=== PATIENT | male | born 1960 | race Caucasian/White ===

== ENCOUNTER 2023-06-19 11:21 | Inpatient (IN) | payer OTHER ==
[2023-06-19 11:38] VITALS: BMI 29.5
[2023-06-19] MEDS ORDERED: guaiFENesin 600 MG TABLET.ER (FP) PO PRN (12:17)
[2023-06-19] MEDS ORDERED: NALOXONE HCL 0.4 MG/ML VIAL IM PRN (12:17)
[2023-06-19] MEDS ORDERED: LOPERAMIDE HCL 2 MG CAPSULE PO PRN (12:17)
[2023-06-19] MEDS ORDERED: BENZOCAINE/MENTHOL (CHLORASEPTIC ) LOZENGE MM PRN (12:17)
[2023-06-19] MEDS ORDERED: BENZONATATE 200 MG CAPSULE PO PRN (12:17)
[2023-06-19] MEDS ORDERED: POLYETHYLENE GLYCOL (HEALTHYLAX) 3350 17 GM PACKET PO PRN (12:17)
[2023-06-19] MEDS ORDERED: NALOXONE HCL (KLOXXADO) 8 MG SPRAY NS PRN (12:17)
[2023-06-19] MEDS ORDERED: NICOTINE POLACRILEX 2 MG GUM BUC PRN (12:17)
[2023-06-19] MEDS ORDERED: MAGNESIUM HYDROX 2400MG/30ML ORAL SUSPENSION 30 ML CUP PO PRN (12:17)
[2023-06-19] MEDS: MAG HYDROX/AL HYDROX/SIMETH 30 ML UNIT-DOSE CUP PO PRN (15:07)
[2023-06-19] MEDS: MELATONIN 5 MG TABLETS PO SCH (21:01)
[2023-06-19] MEDS: THIAMINE HCL 100 MG TABLET (FP) PO SCH (21:01)
[2023-06-19] MEDS: IBUPROFEN 600 MG TABLET (FP) PO PRN (21:01)
[2023-06-20] MEDS: IBUPROFEN 400 MG TABLET (FP) PO PRN (06:12)
[2023-06-20] MEDS ORDERED: PATIENT'S OWN MEDICATION (NON-FORMULARY) (Diclofenac Sodium 0.01 MG/MG Gel) TP SCH (09:00)
[2023-06-20] MEDS ORDERED: FAMOTIDINE 20 MG TABLET PO SCH (09:00)
[2023-06-20] MEDS: LOSARTAN POTASSIUM 50 MG TABLET PO SCH (09:56)
[2023-06-20] MEDS: PRENATAL VITAMINS W/ FOLIC ACID TABLET (FP) PO SCH (09:56)
[2023-06-20] MEDS: ACETAMINOPHEN 325 MG TABLET (FP) PO PRN (09:57)
[2023-06-20] MEDS: NICOTINE 14 MG/24 HOURS TOPICAL PATCH TD SCH (10:16)
[2023-06-20] MEDS: METHYL SALICYLATE/MENTHOL OINT 30 GM TUBE TP SCH (10:38)
[2023-06-20 11:58] LABS: HEMATOCRIT 42.8 % (35.4-49); HEMOGLOBIN 14.1 GM/dL (11.7-16.9); MCH 28.2 pg (25.7-33.7); MEAN CELL VOLUME 85.5 fl (80-96); MEAN PLT VOLUME 8.1 fl (7.5-11.1); PLATELET COUNT 206 10^3/uL (134-434); RBC 5.01 M/mm3 (4.00-5.60); RDW 14.1 % (11.9-15.9); WHITE BLOOD COUNT 6.1 K/mm3 (4.0-10.0)
[2023-06-20 12:19] LABS: CHLORIDE 103 mmol/L (98-107); POTASSIUM 4.7 mmol/L (3.5-5.1); SODIUM 140 mmol/L (136-145)
[2023-06-20 12:37] LABS: ALBUMIN 3.6 g/dl (3.4-5.0); BLOOD UREA NITROGEN 16.8 mg/dL (7-18)
[2023-06-20 12:39] LABS: CREATININE 0.9 mg/dL (0.55-1.3)
[2023-06-20 12:40] LABS: SGOT/AST 19 U/L (15-37)
[2023-06-20 12:41] LABS: BILIRUBIN,TOTAL 0.5 mg/dL (0.2-1); TOT PROT 6.8 g/dl (6.4-8.2)
[2023-06-20 12:42] LABS: ALK PHOS 83 U/L (45-117); ANION GAP 8 mmol/L (4-13); CALCIUM 9.2 mg/dL (8.5-10.1); CO2 29 mmol/L (21-32); GLUCOSE,RANDOM 115 mg/dL (74-106)
[2023-06-20 12:45] LABS: SGPT/ALT 30 U/L (13-61)
[2023-06-20] MEDS: FAMOTIDINE 20 MG TABLET PO SCH (14:31)
[2023-06-20 16:09] LABS: PH,URINE 7.5 (5.0-8.0); URINE APPEARANCE CLEAR; URINE BILIRUBIN NEGATIVE (NEGATIVE); URINE COLOR YELLOW; URINE GLUCOSE (UA) NEGATIVE (NEGATIVE); URINE KETONE NEGATIVE (NEGATIVE); URINE LEUK ESTERASE NEGATIVE (NEGATIVE); URINE NITRITE NEGATIVE (NEGATIVE); URINE PROTEIN NEGATIVE (NEGATIVE); URINE UROBILINOGEN 0.2 mg/dL (0.2-1.0)
[2023-06-20] MEDS: ATORVASTATIN CA 40 MG TABLET (FP) PO SCH (21:10)
[2023-06-20] MEDS: IBUPROFEN 600 MG TABLET (FP) PO PRN (21:10)
[2023-06-23] MEDS: METHOCARBAMOL 500 MG TABLET PO PRN (10:00)
[2023-06-23] MEDS: LIDOCAINE 5% TOPICAL PATCH TP SCH (16:16)
[2023-06-23] MEDS: LIDOCAINE PATCH REMOVAL MC SCH (21:03)
[2023-06-27] MEDS ORDERED: NICOTINE 14 MG/24 HOURS TOPICAL PATCH TD PRN (14:09)
[2023-07-01] MEDS ORDERED: INSULIN (NOVOLOG) ASPART 100 UNITS/ML 10ML VIAL ONE (21:34)
[2023-07-03 07:19] VITALS: RESP 17; TEMP 97.2
[2023-07-03 09:10] VITALS: BP 126/76; PULSE 85
== END 2023-07-03 09:18 | disposition home or self-care (01) | DRG 772 ==
LOC: YASAS 11:21 → Y3E 13:47
PROVIDERS: ADMIT Allergy & Immunology; ATTEND Psychiatry & Neurology Pain Medicine
PROC: HZ42ZZZ Group Counseling for Substance Abuse Treatment, Cognitive-Behavioral (ICD-10-PCS; principal; 2023-06-19)
DX: F10.20 Alcohol dependence, uncomplicated (principal); F17.210 Nicotine dependence, cigarettes, uncomplicated; E78.5 Hyperlipidemia, unspecified; I10 Essential (primary) hypertension; K21.9 Gastro-esophageal reflux disease without esophagitis; M19.90 Unspecified osteoarthritis, unspecified site; M25.519 Pain in unspecified shoulder; Z59.01 Sheltered homelessness; Z88.0 Allergy status to penicillin
CPT/HCPCS: 36415; 80053; 80305; 80307; 81003; 85027; 86480; 86780; 87811; 93005; 93010